=== PATIENT | female | born 1990 | race American Indian/Alaskan Native ===

== ENCOUNTER 2021-11-10 08:45 | Day surgery (SDC) | payer MEDICAID ==
[2021-11-10] MEDS ORDERED: LACTATED RINGERS 1,000 ML ONE (09:06)
--- NOTE | 2021-11-10 09:44 | Anesthesia Consultation ---
Anesthesia Consult and Med Hx Date of service: 11/10/21 - Airway Anesthetic Teeth Evaluation: Chipped ROM Head & Neck: Adequate Mental/Hyoid Distance: Adequate Mallampati Class: Class III Intubation Access Assessment: Probably Good - Pre-Operative Health Status ASA Pre-Surgery Classification: ASA2 Proposed Anesthetic Plan: General - Pulmonary Hx Smoking: Yes Hx Sleep Apnea: No - Gastrointestinal Hx Gastroesophageal Reflux Disease: No - Hematic Hx Sickle Cell Disease: No - Other Systems Hx Obesity: No
--- NOTE | 2021-11-10 09:44 | Anesthesia Day of Surgery ---
Anesthesia Day of Surgery - Day of Surgery Patient Examined: Yes Patient H&P Reviewed: Yes Patient is NPO: Yes
[2021-11-10] MEDS ORDERED: LIDOCAINE MPF (2%) 20 MG/1 ML VIAL 5 ML ONE (09:50)
[2021-11-10] MEDS ORDERED: propofoL 200 MG/20 ML VIAL IV ONE (09:50)
[2021-11-10] MEDS ORDERED: fentaNYL 100 MCG/2 ML INJ ONE (09:51)
[2021-11-10] MEDS ORDERED: MIDAZOLAM 2 MG/2 ML INJ IV NR (10:00)
[2021-11-10] MEDS ORDERED: ceFAZolin/STERILE WATER 2 GM/20 ML SYRINGE IV NR (10:00)
[2021-11-10] MEDS ORDERED: LACTATED RINGERS 1,000 ML IV SCH (10:00)
[2021-11-10] MEDS ORDERED: ONDANSETRON 4 MG/2 ML INJ IV PRN (10:00)
[2021-11-10] MEDS ORDERED: HYDROmorphone 1 MG/1 ML INJ IV PRN ×2 (10:00)
[2021-11-10] MEDS ORDERED: ONDANSETRON 4 MG/2 ML INJ ONE (10:11)
[2021-11-10] MEDS ORDERED: KETOROLAC 30 MG/1 ML INJ ONE (10:11)
[2021-11-10] MEDS ORDERED: dexAMETHasone 20 MG/5 ML VIAL ONE (10:11)
[2021-11-10] MEDS ORDERED: ceFAZolin/Water 2 GM/20 ML 2 GM/20 ML SYRINGE IV ONE (10:22)
[2021-11-10] MEDS ORDERED: ePHEDrine SULFATE 50 MG/1 ML INJ ONE (11:03)
--- NOTE | 2021-11-10 11:22 | Post Operative Note ---
Date of procedure: 11/10/21 Pre-op diagnosis: left ureteral stone Post-op diagnosis: other Findings: bubba\e Procedure: cysto laser stent urteroscopy Anesthesia: GETA Surgeon: CARA PRATHER Pathology: list (stones) Specimen disposition: given to patient/family Condition: stable Disposition: PACU
--- NOTE | 2021-11-10 11:23 | Discharge Summary ---
Short Stay Discharge Plan Activity: other (no straining ) Weight Bearing Status: Full Weight Bearing Diet: low fat, low cholesterol, low salt Special Instructions: other (stent in do not pull string ) Follow up with: CARA PRATHER MD [Staff Physician] - 7 Days
[2021-11-10] MEDS ORDERED: WATER FOR IRRIG STERILE 2000 ML IR ONE (11:56)
--- NOTE | 2021-11-10 13:00 | Operative Report ---
DATE OF SURGERY: 11/10/2021 PREOPERATIVE DIAGNOSES: Severe left flank pain, left distal ureteral stone. POSTOPERATIVE DIAGNOSES: Severe left flank pain, left distal ureteral stone. PROCEDURES: Cystoscopy, left retrograde, left ureteral balloon dilatation, ureteroscopy, laser of stone with extraction. SURGEON: Aditya Nicole MD ANESTHESIA: General. FINDINGS: This is a woman with a very large left distal stone with severe pain. She now presents for treatment. All risks and implications were discussed. DESCRIPTION OF PROCEDURE: The patient was brought to the operating room and placed on the operating table. Following induction of anesthesia, placed in a lithotomy position, prepped and draped in the usual sterile fashion. Cystourethroscopy showed some edema around the orifice. Retrograde showed the stone, approximately 8-9 mm distal stone. A wire coiled by the kidney; we could not get the open-ended easily by the stone, but the balloon did go by the stone. Balloon dilatation was carried out and the stone was well visualized at the distal ureter with a rigid ureteroscope. Laser started at lower watt, so had to go up to 10 because it was a very hard stone. We broke it into about 6 pieces and they were extracted with a grasper. The patient tolerated the procedure well. No significant complications. A double-J coiled in the kidney with a string, brought to recovery in a stable condition. TID: [id number] RECEIPT: [id number] SADE/TOM
--- NOTE | 2021-11-10 13:18 | Fluoroscopy Report ---
FLUOROSCOPY RETROGRADE UROGRAPHY FLUOROSCOPY URETER/NEPHROSTOMY DILATATION LEFT INDICATION: LT URETERAL STONE. COMPARISON: None. IMPRESSION: 61 seconds of fluoroscopy time was provided by radiology during retrograde urography by the urologist. 6 fluoroscopic images are presented. The images demonstrate a mildly obstructing stone in the distal left ureter. Subsequent images demonstrate removal of the stone and placement of a lef t ureteral stent which is in good position on the final image. No images of the right side are presen haresh. Please correlate with the procedural report as needed. Signer Name: Theron Laird Jr, MD Signed: 11/10/2021 1:14 PM Workstation Name: [id number]
--- NOTE | 2021-11-10 14:57 | Post Anesthesia Evaluation ---
- Post Anesthesia Evaluation Patient Participated: Yes Airway Patent: Yes Stable Respiratory Function: Yes Nausea/Vomiting: No Temp > 96.8F: Yes Pain Manageable: Yes Adequeate Hydration: Yes Anesthesia Complications: No Block Receding Appropriately: Not Applicable Patient on Ventilator: No
[2021-11-10 15:50] VITALS: BP 108/70
== END 2021-11-10 13:00 | disposition home or self-care (01) ==
LOC: EDSEX 08:45 → OR 08:45
PROVIDERS: ATTEND Urology
DX: N20.1 Calculus of ureter (principal); F17.210 Nicotine dependence, cigarettes, uncomplicated; Z98.51 Tubal ligation status; Z98.890 Other specified postprocedural states
CPT/HCPCS: 52356; 74420; 74485; 81025; C1726; C1758; C1769; C2617; J0690; J1100; J1885; J2250; J2405; J2704; J3010; J3490; J7120; Q9967